=== PATIENT | male | born 1970 | race Hispanic/Latino ===

== ENCOUNTER 2022-07-04 08:53 | Inpatient (IN) | payer OTHER ==
[~2022-07-04] VITALS: Ht 162.6 cm; Wt 90.7 kg
[2022-07-04 09:28] LABS: BASOPHILS % (AUTO) 0.4 % (0.0-5.0); EOSINOPHILS % (AUTO) 1.5 % (0.0-8.0); HEMATOCRIT 35.6 % (42-54); LYMPHOCYTES % (AUTO) 14.7 % (21.0-51.0); MEAN CORPUSCULAR HEMOGLOBIN 27.4 pg (27.0-33.0); MEAN CORPUSCULAR VOLUME 80.7 fL (79-99); MONOCYTES % (AUTO) 6.3 % (3.0-13.0); NEUTROPHILS % (AUTO) 76.6 % (40.0-77.0); PLATELET COUNT (AUTO) 487 K/uL (130-400); RED BLOOD CELL COUNT(AUTO) 4.41 MIL/uL (4.50-6.20); RED CELL DISTRIBUTION WIDTH 11.5 % (11.0-15.5); WHITE BLOOD COUNT (AUTO) 15.7 K/uL (4.8-10.8)
[2022-07-04 10:03] LABS: ALBUMIN 2.6 g/dL (3.5-5.0); CREATININE 0.8 mg/dL (0.5-1.5); POTASSIUM 3.3 mmol/L (3.5-5.1); TOTAL PROTEIN, SERUM 7.7 g/dL (6.0-8.3)
[2022-07-04] MEDS ORDERED: ZOSYN 3.375GM +NS 50ML IV ONE (11:00)
[2022-07-04] MEDS ORDERED: INSULIN HUMULIN R 100 UNIT/ML 3ML SQ ONE (11:00)
[2022-07-04] MEDS ORDERED: HYDROCODONE/ACETAMINOPHEN 5/325 MG TAB PO PRN (11:30)
[2022-07-04] MEDS ORDERED: ONDANSETRON 4MG INJ IV PRN (11:30)
[2022-07-04] MEDS ORDERED: ACETAMINOPHEN 325 MG TAB PO PRN (11:30)
[2022-07-04] MEDS ORDERED: VANCOMYCIN PROTOCOL PER PHARMACY IV PRN (11:30)
[2022-07-04] MEDS: CEFEPIME HCL 2 GM VIAL IVP SCH ×2 (11:56→19:22)
[2022-07-04] MEDS ORDERED: TETANUS/DIPHTHERIA TOXOID [ADULT] 0.5 ML VIAL IM ONE (12:00)
[2022-07-04] MEDS ORDERED: LIDOCAINE HCL-MPF 1% 2ML VIAL IV PRN (12:00)
[2022-07-04] MEDS ORDERED: POTASSIUM CHLORIDE 20MEQ/100ML 100 ML IV PRN (12:00)
[2022-07-04] MEDS ORDERED: POTASSIUM CHLORIDE 10% ELIXIR 20 MEQ/15 ML UDCUP PO PRN (12:00)
[2022-07-04 12:05] LABS: % IRON SATURATION 12.6 % (30-44)
[2022-07-04] MEDS ORDERED: METF-890 PO (12:05)
[2022-07-04] MEDS ORDERED: AMOX1TAB16 PO (12:05)
[2022-07-04] MEDS: KCL 20 MEQ ERTAB PO PRN ×2 (12:06→13:31)
[2022-07-04 12:08] LABS: HEMOGLOBIN A1C 11.3 % (4.0-6.0)
[2022-07-04 12:18] LABS: INR 0.96 (0.85-1.15); PROTHROMBIN TIME 10.5 SEC (9.6-11.6)
[2022-07-04] MEDS ORDERED: METOPROLOL TARTRATE 1 MG/ML 5ML VIAL IV PRN (12:30)
[2022-07-04] MEDS: VANCOMYCIN 1.25 GM/250 ML BAG 250 ML IV SCH ×2 (13:31→23:59)
[2022-07-04 16:00] VITALS: BP 143/68
[2022-07-04] MEDS: INSULIN HUMULIN R 100 UNIT/ML 3ML SQ SCH (19:02)
[2022-07-04] MEDS: FAMOTIDINE 20MG TAB PO SCH (19:21)
[2022-07-04] MEDS: ACETAMINOPHEN 325 MG TAB PO PRN (19:22)
[2022-07-04 20:02] VITALS: BP 157/75
[2022-07-04 23:20] VITALS: BP 140/79
[2022-07-05] MEDS: CEFEPIME HCL 2 GM VIAL IVP SCH ×3 (02:39→20:02)
[2022-07-05 03:38] VITALS: BP 143/79
[2022-07-05 05:18] LABS: HEMATOCRIT 31.8 % (42-54); MEAN CORPUSCULAR HEMOGLOBIN 27.9 pg (27.0-33.0); MEAN CORPUSCULAR HGB CONC 34.3 g/dL (32.0-36.0); MEAN CORPUSCULAR VOLUME 81.3 fL (79-99); RED BLOOD CELL COUNT(AUTO) 3.91 MIL/uL (4.50-6.20); RED CELL DISTRIBUTION WIDTH 11.7 % (11.0-15.5); WHITE BLOOD COUNT (AUTO) 13.3 K/uL (4.8-10.8)
[2022-07-05] MEDS: INSULIN HUMULIN R 100 UNIT/ML 3ML SQ SCH ×6 (05:31→21:30)
[2022-07-05 05:40] LABS: CREATININE 0.7 mg/dL (0.5-1.5); POTASSIUM 3.2 mmol/L (3.5-5.1)
[2022-07-05 08:00] VITALS: BP 143/78
[2022-07-05] MEDS: LISINOPRIL 10 MG TABLET PO SCH (08:00)
[2022-07-05] MEDS: FAMOTIDINE 20MG TAB PO SCH ×2 (08:00→20:02)
[2022-07-05 12:00] VITALS: BP 140/67
[2022-07-05] MEDS ORDERED: MAGNESIUM 2GM PREMIX 50ML 50 ML IV PRN (12:00)
[2022-07-05] MEDS: VANCOMYCIN 1.25 GM/250 ML BAG 250 ML IV SCH (12:31)
[2022-07-05 16:00] VITALS: BP 100/62
[2022-07-05 18:14] LABS: APPEARANCE,URINE CLEAR (CLEAR); BILIRUBIN,URINE NEGATIVE (NEGATIVE); COLOR,URINE YELLOW (YELLOW); GLUCOSE, URINE (UA) >=1000 mg/dL (NEGATIVE); KETONES,URINE NEGATIVE (NEGATIVE); LEUKOCYTE ESTERASE ,URINE NEGATIVE Leu/uL (NEGATIVE); NITRATE,URINE NEGATIVE (NEGATIVE); OCCULT BLOOD,URINE NEGATIVE (NEGATIVE); PROTEIN,URINE 50 mg/dL (NEGATIVE)
[2022-07-05 18:20] LABS: BACTERIA,URINE RARE /HPF (None Seen); MUCUS,URINE RARE LPF (None Seen); SQUAMOUS EPITHELIAL CELL,UR RARE /HPF (0-2)
[2022-07-05 19:31] VITALS: BP 141/62
[2022-07-05] MEDS: HYDROCODONE/ACETAMINOPHEN 5/325 MG TAB PO PRN (20:03)
[2022-07-05 23:21] VITALS: BP 132/63
[2022-07-06] MEDS: VANCOMYCIN 1.25 GM/250 ML BAG 250 ML IV SCH ×2 (00:26→12:00)
[2022-07-06 03:46] VITALS: BP 144/66
[2022-07-06] MEDS: CEFEPIME HCL 2 GM VIAL IVP SCH ×3 (03:52→20:01)
[2022-07-06 05:12] LABS: HEMATOCRIT 29.6 % (42-54); MEAN CORPUSCULAR HEMOGLOBIN 27.7 pg (27.0-33.0); MEAN CORPUSCULAR HGB CONC 34.1 g/dL (32.0-36.0); MEAN CORPUSCULAR VOLUME 81.1 fL (79-99); RED BLOOD CELL COUNT(AUTO) 3.65 MIL/uL (4.50-6.20); RED CELL DISTRIBUTION WIDTH 11.5 % (11.0-15.5); WHITE BLOOD COUNT (AUTO) 14.1 K/uL (4.8-10.8)
[2022-07-06 05:24] LABS: CREATININE 0.7 mg/dL (0.5-1.5)
[2022-07-06 05:33] LABS: POTASSIUM 2.9 mmol/L (3.5-5.1)
[2022-07-06] MEDS: KCL 20 MEQ ERTAB PO PRN ×4 (05:37→11:59)
[2022-07-06] MEDS: INSULIN HUMULIN R 100 UNIT/ML 3ML SQ SCH ×7 (06:23→22:06)
[2022-07-06 07:20] VITALS: BP 125/53
[2022-07-06] MEDS: LISINOPRIL 10 MG TABLET PO SCH (08:47)
[2022-07-06] MEDS: FAMOTIDINE 20MG TAB PO SCH ×2 (08:54→20:01)
[2022-07-06] MEDS: HYDROCODONE/ACETAMINOPHEN 5/325 MG TAB PO PRN ×2 (08:58→20:05)
[2022-07-06] MEDS ORDERED: ASPIRIN 81 MG EC TAB PO ONE (10:00)
[2022-07-06 11:20] VITALS: BP 117/62
[2022-07-06] MEDS: ASPIRIN 81 MG EC TAB PO SCH (11:46)
[2022-07-06] MEDS ORDERED: GADOTERATE MEGLUMINE 10 MMOL/20 ML VIAL IV ONE (14:43)
[2022-07-06 15:10] VITALS: BP 123/66
[2022-07-06] MEDS: VANCOMYCIN 1.5 GM/250 ML BAG 250 ML IV SCH (15:35)
[2022-07-06 16:15] LABS: MAGNESIUM 1.8 mg/dL (1.80-2.40); POTASSIUM 4.1 mmol/L (3.5-5.1)
[2022-07-06 19:34] VITALS: BP 138/65
[2022-07-06] MEDS: ATORVASTATIN 40 MG TABLET PO SCH (20:01)
[2022-07-06 23:59] VITALS: BP 129/70
[2022-07-07] VITALS (22 sets, daily range): BP systolic 114–151; BP diastolic 53–75
[2022-07-07] MEDS: VANCOMYCIN 1.5 GM/250 ML BAG 250 ML IV SCH ×2 (03:05→15:44)
[2022-07-07] MEDS: CEFEPIME HCL 2 GM VIAL IVP SCH ×3 (03:05→19:54)
[2022-07-07 04:43] LABS: CREATININE 0.7 mg/dL (0.5-1.5); POTASSIUM 3.6 mmol/L (3.5-5.1)
[2022-07-07 04:51] LABS: HEMATOCRIT 30.1 % (42-54); MEAN CORPUSCULAR HEMOGLOBIN 27.3 pg (27.0-33.0); MEAN CORPUSCULAR HGB CONC 33.6 g/dL (32.0-36.0); MEAN CORPUSCULAR VOLUME 81.4 fL (79-99); RED BLOOD CELL COUNT(AUTO) 3.7 MIL/uL (4.50-6.20); RED CELL DISTRIBUTION WIDTH 11.8 % (11.0-15.5); WHITE BLOOD COUNT (AUTO) 12.1 K/uL (4.8-10.8)
[2022-07-07] MEDS: INSULIN HUMULIN R 100 UNIT/ML 3ML SQ SCH ×7 (05:46→19:55)
[2022-07-07] MEDS ORDERED: LIDOCAINE HCL 1% 10 ML VIAL ONE (06:55)
[2022-07-07] MEDS ORDERED: BUPIVACAINE/PF 0.5% 10ML VIAL ONE (06:55)
[2022-07-07] MEDS ORDERED: MIDAZOLAM HCL 1 MG/ML 2ML VIAL ONE (07:02)
[2022-07-07] MEDS ORDERED: PROPOFOL 10 MG/ML 20ML VIAL IV ONE (07:03)
[2022-07-07] MEDS ORDERED: FENTANYL CITRATE PF 50 MCG/1 ML 2ML VIAL ONE ×2 (07:03)
[2022-07-07] MEDS ORDERED: PROPOFOL 1000 MG/100 ML 100 ML IV ONE (07:26)
[2022-07-07] MEDS ORDERED: ONDANSETRON 4MG INJ ONE (07:35)
[2022-07-07] MEDS ORDERED: GLYCOPYRROLATE 1 MG/5 ML SYRINGE ONE (08:03)
[2022-07-07] MEDS ORDERED: INSULIN GLARGINE 100 UNITS/ML 10 ML VIAL SQ SCH (09:30)
[2022-07-07] MEDS: LISINOPRIL 10 MG TABLET PO SCH (10:00)
[2022-07-07] MEDS: FAMOTIDINE 20MG TAB PO SCH ×2 (10:00→19:55)
[2022-07-07] MEDS: ASPIRIN 81 MG EC TAB PO SCH (10:00)
[2022-07-07] MEDS: HYDROCODONE/ACETAMINOPHEN 5/325 MG TAB PO PRN ×3 (10:05→21:43)
[2022-07-07] MEDS: ATORVASTATIN 40 MG TABLET PO SCH (19:55)
[2022-07-07] MEDS: ACETAMINOPHEN 325 MG TAB PO PRN (19:56)
[2022-07-07] MEDS: INSULIN GLARGINE 100 UNITS/ML 10 ML VIAL SQ SCH (20:03)
[2022-07-08] MEDS: VANCOMYCIN 1.5 GM/250 ML BAG 250 ML IV SCH (02:18)
[2022-07-08] MEDS: CEFEPIME HCL 2 GM VIAL IVP SCH (02:18)
[2022-07-08 03:51] VITALS: BP 126/66
[2022-07-08 04:41] LABS: HEMATOCRIT 27.9 % (42-54); MEAN CORPUSCULAR HEMOGLOBIN 27.4 pg (27.0-33.0); MEAN CORPUSCULAR HGB CONC 33.3 g/dL (32.0-36.0); MEAN CORPUSCULAR VOLUME 82.3 fL (79-99); RED BLOOD CELL COUNT(AUTO) 3.39 MIL/uL (4.50-6.20); RED CELL DISTRIBUTION WIDTH 11.6 % (11.0-15.5); WHITE BLOOD COUNT (AUTO) 12.3 K/uL (4.8-10.8)
[2022-07-08 04:51] LABS: CREATININE 0.7 mg/dL (0.5-1.5); POTASSIUM 3.5 mmol/L (3.5-5.1)
[2022-07-08] MEDS: KCL 20 MEQ ERTAB PO PRN (05:27)
[2022-07-08] MEDS: INSULIN HUMULIN R 100 UNIT/ML 3ML SQ SCH ×7 (06:21→20:52)
[2022-07-08 07:39] VITALS: BP 134/56
[2022-07-08] MEDS: FAMOTIDINE 20MG TAB PO SCH ×2 (09:09→20:44)
[2022-07-08] MEDS: LISINOPRIL 10 MG TABLET PO SCH (09:09)
[2022-07-08] MEDS: HYDROCODONE/ACETAMINOPHEN 5/325 MG TAB PO PRN ×3 (09:10→22:43)
[2022-07-08] MEDS: ASPIRIN 81 MG EC TAB PO SCH (09:10)
[2022-07-08] MEDS: INSULIN GLARGINE 100 UNITS/ML 10 ML VIAL SQ SCH ×2 (09:12→20:52)
[2022-07-08 11:43] VITALS: BP 106/28
[2022-07-08] MEDS: CEFAZOLIN SODIUM 1 GM VIAL IVP SCH ×2 (13:24→20:44)
[2022-07-08 16:20] VITALS: BP 147/67
[2022-07-08 20:19] VITALS: BP 121/73
[2022-07-08] MEDS: ATORVASTATIN 40 MG TABLET PO SCH (20:44)
[2022-07-09 00:29] VITALS: BP 138/77
[2022-07-09 03:45] VITALS: BP 116/63
[2022-07-09] MEDS: CEFAZOLIN SODIUM 1 GM VIAL IVP SCH ×3 (04:01→18:50)
[2022-07-09] MEDS: INSULIN HUMULIN R 100 UNIT/ML 3ML SQ SCH ×7 (06:53→21:00)
[2022-07-09 08:27] VITALS: BP 157/76
[2022-07-09] MEDS: INSULIN GLARGINE 100 UNITS/ML 10 ML VIAL SQ SCH ×2 (09:00→23:35)
[2022-07-09] MEDS: ASPIRIN 81 MG EC TAB PO SCH (09:00)
[2022-07-09] MEDS: FAMOTIDINE 20MG TAB PO SCH ×2 (09:00→20:37)
[2022-07-09] MEDS: LISINOPRIL 10 MG TABLET PO SCH (09:00)
[2022-07-09] MEDS ORDERED: HEPARIN 10,000 UNIT/10ML (1,000 UNIT/ML) VIAL ONE (11:06)
[2022-07-09] MEDS ORDERED: FENTANYL CITRATE PF 50 MCG/1 ML 2ML VIAL ONE (11:18)
[2022-07-09] MEDS ORDERED: MIDAZOLAM HCL 1 MG/ML 2ML VIAL ONE (11:18)
[2022-07-09] MEDS ORDERED: ASPIRIN 325MG EC TAB PO ONE (11:36)
[2022-07-09] MEDS ORDERED: CLOPIDOGREL 300MG TAB ONE (11:36)
[2022-07-09] MEDS ORDERED: 0.9%NACL 1000ML 1,000 ML IV SCH (12:00)
[2022-07-09 13:01] VITALS: BP 149/70
[2022-07-09 15:30] VITALS: BP 146/72
[2022-07-09] MEDS: ATORVASTATIN 40 MG TABLET PO SCH (20:38)
[2022-07-09] MEDS: ACETAMINOPHEN 325 MG TAB PO PRN (20:42)
[2022-07-09 20:50] VITALS: BP 151/72
[2022-07-09] MEDS ORDERED: HYDROMORPHONE 0.5 MG SYG (0.5MG/0.5ML) IVP ONE (23:00)
[2022-07-10 00:16] VITALS: BP 146/68
[2022-07-10] MEDS: CEFAZOLIN SODIUM 1 GM VIAL IVP SCH ×2 (03:54→12:04)
[2022-07-10] MEDS: ACETAMINOPHEN 325 MG TAB PO PRN (04:04)
[2022-07-10 04:43] VITALS: BP 148/93
[2022-07-10 05:12] LABS: BASOPHILS % (AUTO) 0.6 % (0.0-5.0); EOSINOPHILS % (AUTO) 2.9 % (0.0-8.0); HEMATOCRIT 29.4 % (42-54); LYMPHOCYTES % (AUTO) 18.5 % (21.0-51.0); MEAN CORPUSCULAR HEMOGLOBIN 26.9 pg (27.0-33.0); MEAN CORPUSCULAR HGB CONC 33.3 g/dL (32.0-36.0); MEAN CORPUSCULAR VOLUME 80.8 fL (79-99); MONOCYTES % (AUTO) 7.3 % (3.0-13.0); NEUTROPHILS % (AUTO) 70.3 % (40.0-77.0); PLATELET COUNT (AUTO) 434 K/uL (130-400); RED BLOOD CELL COUNT(AUTO) 3.64 MIL/uL (4.50-6.20); RED CELL DISTRIBUTION WIDTH 11.5 % (11.0-15.5); WHITE BLOOD COUNT (AUTO) 8.5 K/uL (4.8-10.8)
[2022-07-10 05:29] LABS: CREATININE 0.7 mg/dL (0.5-1.5); POTASSIUM 3.3 mmol/L (3.5-5.1); TOTAL PROTEIN, SERUM 6.8 g/dL (6.0-8.3)
[2022-07-10] MEDS: INSULIN HUMULIN R 100 UNIT/ML 3ML SQ SCH ×6 (06:22→17:45)
[2022-07-10] MEDS: KCL 20 MEQ ERTAB PO PRN (06:35)
[2022-07-10 08:00] VITALS: BP 155/85
[2022-07-10] MEDS ORDERED: CLOPIDOGREL 75MG TAB PO SCH (09:00)
[2022-07-10] MEDS: ASPIRIN 81 MG EC TAB PO SCH (09:11)
[2022-07-10] MEDS: FAMOTIDINE 20MG TAB PO SCH (09:11)
[2022-07-10] MEDS: LISINOPRIL 10 MG TABLET PO SCH (09:12)
[2022-07-10] MEDS: INSULIN GLARGINE 100 UNITS/ML 10 ML VIAL SQ SCH (09:25)
[2022-07-10] MEDS ORDERED: MORPHINE 2 MG SYG IVP PRN (11:00)
[2022-07-10] MEDS ORDERED: KETOROLAC 15MG/ML VIAL (15MG/ML) IV PRN (11:00)
[2022-07-10 12:00] VITALS: BP 150/63
[2022-07-10] MEDS ORDERED: LISI10TA24 PO (12:31)
[2022-07-10] MEDS ORDERED: FAMO20TA8 PO (12:31)
[2022-07-10] MEDS ORDERED: ATOR40TA69 PO (12:31)
[2022-07-10] MEDS ORDERED: CLOP75TA14 PO (12:31)
[2022-07-10] MEDS ORDERED: AEC81 PO (12:31)
[2022-07-10 16:00] VITALS: BP 129/63
== END 2022-07-10 18:30 | disposition home or self-care (01) | DRG 271 ==
LOC: EDH 08:53 → EDHIP 08:54 → UNDOADMIN 11:30 → 3DH 16:22 → EDHIP 07-10 08:57 → 3DH 07-10 08:57
PROVIDERS: ADMIT Hospitalist; ATTEND Hospitalist
PROC: 0Y9N0ZZ Drainage of Left Foot, Open Approach (ICD-10-PCS; principal; 2022-07-05)
PROC: 0Y6N0ZD Detachment at Left Foot, Partial 4th Ray, Open Approach (ICD-10-PCS; 2022-07-07)
PROC: 0Y6N0ZF Detachment at Left Foot, Partial 5th Ray, Open Approach (ICD-10-PCS; 2022-07-07)
PROC: 0LQW0ZZ Repair Left Foot Tendon, Open Approach (ICD-10-PCS; 2022-07-07)
PROC: 04CQ3ZZ Extirpation of Matter from Left Anterior Tibial Artery, Percutaneous Approach (ICD-10-PCS; 2022-07-09)
PROC: 047N3D1 Dilation of Left Popliteal Artery with Intraluminal Device, using Drug-Coated Balloon, Percutaneous Approach (ICD-10-PCS; 2022-07-09)
PROC: 04FN3ZZ Fragmentation of Left Popliteal Artery, Percutaneous Approach (ICD-10-PCS; 2022-07-09)
PROC: B41D1ZZ Fluoroscopy of Aorta and Bilateral Lower Extremity Arteries using Low Osmolar Contrast (ICD-10-PCS; 2022-07-09)
DX: E11.52 Type 2 diabetes mellitus with diabetic peripheral angiopathy with gangrene (principal); L03.116 Cellulitis of left lower limb; M86.8X7 Other osteomyelitis, ankle and foot; E11.621 Type 2 diabetes mellitus with foot ulcer; Z20.822 Contact with and (suspected) exposure to COVID-19; E11.65 Type 2 diabetes mellitus with hyperglycemia; L97.529 Non-pressure chronic ulcer of other part of left foot with unspecified severity; D72.829 Elevated white blood cell count, unspecified; E87.6 Hypokalemia; B95.61 Methicillin susceptible Staphylococcus aureus infection as the cause of diseases classified elsewhere; I10 Essential (primary) hypertension; E83.42 Hypomagnesemia; E66.9 Obesity, unspecified; E11.69 Type 2 diabetes mellitus with other specified complication; E11.42 Type 2 diabetes mellitus with diabetic polyneuropathy; Z91.19 Patient's noncompliance with other medical treatment and regimen; Z87.891 Personal history of nicotine dependence; Z79.82 Long term (current) use of aspirin; Z79.02 Long term (current) use of antithrombotics/antiplatelets; Z68.34 Body mass index [BMI] 34.0-34.9, adult
CPT/HCPCS: 36415; 73630; 73718; 73720; 75716; 80048; 80053; 80061; 80202; 81001; 82948; 83036; 83540; 83550; 83735; 84132; 84145; 85025; 85027; 85610; 85651; 87040; 87070; 87076; 87077; 87088; 87186; 87205; 87635; 90714; 93005; 93925; 99156; 99157; A6266; C1724; C1760; C1769; C1893; C1894; C9764; C9774; G0378; J0690; J0692; J1644; J1815; J2250; J2405; J2543; J2704; J3010; J3475; J3480; J3490

== ENCOUNTER 2025-06-04 12:24 | Emergency (ER) | payer SELFPAY ==
[~2025-06-04] VITALS: Ht 170.2 cm; Wt 79.9 kg
[~2025-06-04 12:24] MED LIST: AEC81 PO; ATOR40TA69 PO; CLOP-31 PO; FAMO20TA8 PO; LISI10TA24 PO; METF-1150 PO
--- NOTE | 2025-06-04 12:32 | ERN ---
ED Note History of Present Illness Stated Complaint: NUMBNESS TO RIGHT SIDE Chief Complaint: Numbness Time Seen by MD: 12:26 Dictation: PATIENT IS A 54-YEAR-OLD MALE HERE WITH HIS DAUGHTER WITH COMPLAINTS OF HAVING NUMBNESS AND TINGLING TO THE RIGHT SIDE OF HIS BODY ONSET WAS ON SATURDAY. STATES THE ONSET CAME IN HIS CONTINUED SINCE THE OCCURRENCE. STATES HE HAS FELT LIKE HE IS HAVING SOME SLURRING OF SPEECH. PATIENT NOTED TO HAVE DECREASED SENSATION TO HIS LOWER EXTREMITIES ON EXAM BILATERALLY. CRANIAL NERVES GROSSLY INTACT SPEECH IS CLEAR. PATIENT STATES HE HAS A DIABETIC, DOES NOT TAKE ANY MEDICATIONS OR TRIED TO CONTROL HIS DIABETES. NO PRIMARY CARE DOCTOR. Allergies: Coded Allergies: No Known Allergies (Unverified Allergy, Unknown, 07/04/22) Home Meds Active Scripts Lisinopril (Lisinopril) 10 Mg Tablet, 10 MG PO DAILY, #30 TAB 0 Refills Prov:ELSIE GRIMALDO [facility] 07/10/22 Famotidine (Famotidine) 20 Mg Tablet, 20 MG PO BID, #60 TAB 0 Refills Prov:ELSIE GRIMALDO [facility] 07/10/22 Clopidogrel Bisulfate (Plavix) 75 Mg Tablet, 75 MG PO DAILY, #30 TAB 0 Refills Prov:ELSIE GRIMALDO [facility] 07/10/22 Atorvastatin Calcium (LIPITOR) 40 Mg Tablet, 40 MG PO HS, #30 TAB 0 Refills Prov:ELSIE GRIMALDO [facility] 07/10/22 Aspirin (ASPIRIN 81 MG ECTAB) 81 Mg Ectab, 81 MG PO DAILY, #30 TAB.EC 0 Refills Prov:ELSIE GRIMALDO [facility] 07/10/22 Reported Medications Metformin HCl (Metformin HCl ER) 500 Mg [id number], 500 MG PO DAILY 07/04/22 Past Medical History Past Medical History: Diabetes-Type II Surgical History: Other Surgical History Other: RT LEG FX Social History: Other RN Note Reviewed/Agreed w/PFSH: Yes Review of System Dictation CONSTITUTIONAL: NEGATIVE EXCEPT FOR HPI HEAD/FACE: NEGATIVE EXCEPT FOR HPI EENT: NEGATIVE EXCEPT FOR HPI RESPIRATORY: NEGATIVE EXCEPT FOR HPI GASTROINTESTINAL/ABDOMINAL: NEGATIVE EXCEPT FOR HPI GENITOURINARY: NEGATIVE EXCEPT FOR HPI MUSCULOSKELETAL: NEGATIVE EXCEPT FOR HPI INTEGUMENTARY: NEGATIVE EXCEPT FOR HPI NEUROLOGICAL/PSYCH: NEGATIVE EXCEPT FOR HPI NUMBNESS AND TINGLING TO RIGHT UPPER AND LOWER EXTREMITIES HEMATOLOGIC/LYMPHATIC: NEGATIVE EXCEPT FOR HPI ALL SYSTEMS NEGATIVE, EXCEPT NOTED ABOVE. 13 POINT REVIEW OF SYSTEMS ASSESSED AND ALL NEGATIVE EXCEPT FOR ABOVE. Initial Vital Sign VS Vital Signs Date Time Temp Pulse Resp B/P (MAP) Pulse Ox O2 Delivery O2 Flow Rate FiO2 06/04/25 12:26 105 19 188/97 99 Room Air 0 06/04/25 14:02 21 Physical Exam Dictation VITAL SIGNS REVIEWED GENERAL APPEARANCE: ALERT, ORIENTED X 3, NO ACUTE DISTRESS, WELL DEVELOPED, NOURISHED. DENIES PAIN HEAD AND FACE: NON-TRAUMATIC. EYES: PERRL, PINK CONJUNCTIVAS, EYELID NO TRAUMA, ANTERIOR CHAMBER WITH ARCUS SENILIS. EARS: PINNAS INTACT AND NO SIGNS OF TRAUMA OR ERYTHEMA EAR CANALS CLEAR AND NO DISCHARGE TM NO ERYTHEMA NOSE: NO DISCHARGE, NO BLEEDING. OROPHARYNX: MOUTH NORMAL, TONGUE PINK, PHARYNX CLEAR,NO ERYTHEMA, TONSILS NO EXUDATES, NO ABSCESSES NOTED, MUCOUS MEM BRANE MOIST NECK: SUPPLE, NON-TENDER, NO THYROMEGALY, NO MASSES, NO JVD, NO BRUITS BREAST:DEFERRED CHEST:NO TENDERNESS, NO CREPITUS, NO PARADOXICAL MOVEMENT, NO RETRACTIONS LUNGS:CLEAR, WELL-VENTILATED, SYMMETRIC, NO RALES, NO WHEEZING, NO RHONCHI, NO STRIDOR, GOOD BREATH SOUNDS BILATERALLY HEART: REGULAR RATE, REGULAR RHYTHM, NO MURMUR, NO GALLOPS VASCULAR: NO PERIPHERAL EDEMA, ABDOMEN: SOFT, POSITIVE BOWEL SOUNDS, NONDISTENDED, NO GUARDING, NONTENDER, NO REBOUND, NO MASSES NO HEPATOMEGALY, NO SPLENOMEGALY, NO BIRD'S SIGN, NO HERNIAS. RECTAL: DEFERRED GENITAL: DEFERRED NEUROLOGICAL: NORMAL SPEECH, MOTOR FUNCTION INTACT, DECREASED SENSATION TO BILATERAL LOWER EXTREMITIES MOVES ALL EXTREMITIES 5/5 CRANIAL NERVES GROSSLY INTACT MUSCULOSKELETAL: NECK NONTENDER, FULL RANGE OF MOTION, BACK NONTENDER, FULL RANGE OF MOTION, EXTREMITIES: NONTENDER, FULL RANGE OF MOTION SKIN: COLOR PINK, DRY, NO TURGOR, NO RASH, NO LACERATIONS, NO ABRASIONS, NO CONTUSIONS. LYMPHATIC: DEFERRED Results (Laboratory/Radiology) Laboratory/Radiology Laboratory Tests Test 06/04/25 12:42 06/04/25 13:45 06/04/25 14:26 06/04/25 15:42 White Blood Count 8.4 K/uL (4.8-10.8) Red Blood Count 5.29 MIL/uL (4.50-6.20) Hemoglobin 14.9 g/dL (14.0-18.0) Hematocrit 42.7 % (42-54) Mean Corpuscular Volume 80.7 fL (79-99) Mean Corpuscular Hemoglobin 28.2 pg (27.0-33.0) Mean Corpuscular Hemoglobin Concent 34.9 g/dL (32.0-36.0) Red Cell Distribution Width 11.9 % (11.0-15.5) Platelet Count 252 K/uL (130-400) Mean Platelet Volume 11.9 fL (7.5-10.5) H Immature Granulocyte % (Auto) 0.2 % (0-1) Neutrophils (%) (Auto) 67.6 % (40.0-77.0) Lymphocytes (%) (Auto) 25.2 % (21.0-51.0) Monocytes (%) (Auto) 4.9 % (3.0-13.0) Eosinophils (%) (Auto) 1.4 % (0.0-8.0) Basophils (%) (Auto) 0.7 % (0.0-5.0) Neutrophils # (Auto) 5.7 K/uL (1.8-7.7) Lymphocytes # (Auto) 2.1 K/uL (1.0-4.8) Monocytes # (Auto) 0.4 K/uL (0.1-1.0) Eosinophils # (Auto) 0.12 K/uL (0.00-0.70) Basophils # (Auto) 0.06 K/uL (0.00-0.20) Absolute Immature Granulocyte (auto 0.02 K/uL (0-1) Nucleated Red Blood Cells 0.0 % (0.0-0.19) Sodium Level 139 mmol/L (136-145) Potassium Level 4.3 mmol/L (3.5-5.1) Chloride Level 98 mmol/L (101-111) L Carbon Dioxide Level 32 mmol/L (21-32) Blood Urea Nitrogen 20 mg/dL (7-18) H Creatinine 0.9 mg/dL (0.5-1.3) Glomerular Filtration Rate Calc 101 mL/min (>90) Random Glucose 447 mg/dL (70-105) *H Total Calcium 9.5 mg/dL (8.5-10.1) Troponin I High Sensitivity 22 ng/L (4-75) Whole Blood Glucose 401 MG/DL (70-110) *H 368 MG/DL (70-110) H 222 MG/DL (70-110) H Bedside Glucose Comment Notified Nurse REASON: NUMBNESS AND TINGLING TO RIGHT UPPER AND LOWER EXTREMITIES SINCE SATURDAY ORDERING PHYSICIAN: QUAN MORALES VIOLIN MAKER HAND PROCEDURE: HEAD WO - CT HEAD/BRAIN W/O CONTRAST CT OF THE BRAIN WITHOUT CONTRAST CLINICAL INDICATION: Numbness and tingling TECHNIQUE: Multiple contiguous axial CT images were obtained through the brain without the administration of intravenous contrast. Coronal and sagittal reconstructions were also obtained. COMPARISON: None available FINDINGS: The ventricular system and cortical sulci demonstrate a normal size and configuration for the patients age. There are no intra- or extra-axial collections, mass effect, or midline shift. The basal cisterns are patent. The crain-white matter differentiation is preserved. The midline structures and cervicomedullary junction are unremarkable. There is no evidence of acute intracranial hemorrhage or areas of acute infarction. Vascular calcification is present. The calvarium is unremarkable in appearance. No suspicious lytic or sclerotic osseous lesions are seen. The visualized portions of the sinuses are well aerated. The mastoid air cells are well pneumatized and well aerated. The visualized orbital structures are unremarkable in appearance. IMPRESSION: No CT evidence of an acute intracranial process. /[place] Labs Reviewed?: Yes EKG Comment: [facility] Test Date: 2025-06-04 Test Time: 12:36:50 Pat Name: MIRIAM COTTO Department: EDH Room: Gender: Count Room Clerk: 08 : 1970 Requested By: QUAN MORALES Order Number: [id number] Reading MD: Measurements Intervals [place] Rate: 105 P: 34 MO: 178 QRS: 114 QRSD: 109 T: 6 QT: 349 QTc: 461 Interpretive Statements Sinus tachycardia Probable left atrial enlargement Right axis deviation Please click the below link to view image of tracing. ED Course ED Course Orders Procedure Category Date Status Time Ct Head/Brain W/O CT 06/04/25 Resulted Contrast 12:29 Cbc With Differential LAB 06/04/25 Complete 12:29 Troponin I High LAB 06/04/25 Complete Sensitivity 12:29 12 Lead Ekg Tracing- EKG 06/04/25 Complete Technical 12:29 Basic Metabolic Panel LAB 06/04/25 Complete 12:29 Insulin Regular, PHA 06/04/25 Complete Human 3ml (Humulin R 13:30 0.9%Nacl 1000ml (Ns PHA 06/04/25 In Process 1000ml) 13:30 Bedside Glucose CPOE 06/04/25 Transmitted Fingerstick 14:09 Insulin Regular, PHA 06/04/25 Complete Human 3ml (Humulin R 15:30 Current Medications Medications (Trade) Dose Ordered Sig/Tr Route PRN Reason Start Time Stop Time Status Last Admin Dose Admin Insulin Human Regular (humuLIN R 100 UNIT/ML 3ML) 10 unit ONCE ONCE IV 06/04/25 15:30 06/04/25 15:31 DC Insulin Human Regular (humuLIN R 100 UNIT/ML 3ML) 12 unit ONCE ONCE IV 06/04/25 13:30 06/04/25 13:31 DC 06/04/25 13:59 Sodium Chloride 2,397 ml @ 799 mls/hr ONCE ONCE IV 06/04/25 13:30 06/04/25 16:29 06/04/25 13:40 Vital Signs Date Time Temp Pulse Resp B/P (MAP) Pulse Ox O2 Delivery O2 Flow Rate FiO2 06/04/25 14:02 95 16 129/78 99 Room Air* 0 21 06/04/25 12:26 105 19 188/97 99 Room Air 0 1310/SERUM GLUCOSE 447. BICARB IS NORMAL. WE WILL GIVE 12 UNITS HUMULIN REGULAR IV PUSH AND 30 PER KILOS FLUIDS. 1330/SPOKE WITH PATIENT AND DAUGHTER AT LENGTH AT BEDSIDE. THEY ARE AWARE THAT CAT SCAN IS NEGATIVE THAT THERE HAS BEEN NO ACUTE NEUROLOGIC EVENT. PATIENT AND HIS DAUGHTER WERE STRONGLY WARNED TO CONTROL HIS DIABETES OR RISK STROKE, HEART ATTACK, KIDNEY DISEASE, UNCONTROLLED HYPERTENSION PER HER FOR VASCULAR DISEASE BLINDNESS ETC. PATIENT STATES HE USED TO TAKE METFORMIN AND WE WILL TAKE IT IF IT HAS PROVIDED THROUGH A PRESCRIPTION. HIS DAUGHTER STATES SHE IS TRYING TO GET HIM ON MEDICAID. 1555/REPEAT BLOOD SUGAR IS 222. PATIENT NEUROLOGICALLY INTACT AND WAS INFORMED THAT HE NEEDS TO BE COMPLIANT WITH HIS METFORMIN AND FOLLOW A DIABETIC DIET, FOLLOW UP WITH THE DOCTOR IN THE NEXT ONE TWO DAYS AND WE WILL BE GIVEN LIST. HEART Score Response (Comments) Value EKG: Repolarization changes 1 Age: 45-65yrs (+1) 1 Risk Factors: 1-2 risk factors (+1) 1 Initial Troponin: Normal limit (0) 0 Total 3 Medical Decision Making MDM MDM: DIFFERENTIAL DIAGNOSIS: CVA/SUBDURAL HEMATOMA/DIABETIC NEUROPATHY/ELECTROLYTE IMBALANCE/DEHYDRATION/UNCONTROLLED DIABETES RATIONALE: TESTS CONSIDERED AND ORDERED SECONDARY TO SHARED DECISION MAKING INCLUDE: EKG/LABS/ PREVIOUS OUTSIDE RECORDS REVIEWED: OLD ER VISITS. RISK OF COMPLICATION AND/OR MORBIDITY OR MORTALITY OF PATIENT MANAGEMENT: NONE MEDICATIONS-PER MEDICATION RECONCILIATION NEED FOR HOSPITALIZATION: PATIENT DOES NOT MEET CRITERIA FOR HOSPITALIZATION. RAD NO NEED FOR EMERGENCY MAJOR/MINOR SURGERY: NO THERE ARE NO SOCIAL CONCERNS WITH THIS PATIENT. PRESCRIPTION DRUG MANAGEMENT METFORMIN PRESCRIPTIONS WILL INCLUDE SYMPTOMATIC CARE PATIENT'S PRIOR EXTERNAL MEDICAL RECORDS FROM OTHER ER VISITS WERE REVIEWED BY ME INDICATED. PRIOR TESTING AND RESULTS FROM PREVIOUS VISITS WERE REVIEWED. PRIOR TESTS WERE TAKEN INTO ACCOUNT WITH MEDICAL DECISION MAKING AND RESOURCE UTILIZATION, INDEPENDENT HISTORIAN/HISTORIANS WERE USED TO OBTAIN COMPLETE MEDICAL HISTORY. I INDEPENDENTLY INTERPRETED THE TEST THAT WERE PERFORMED, RESULTS WERE REVIEWED BY ME AND CONSIDERED FINDINGS ON RADIOLOGY IF ORDERED. MEDICAL MANAGEMENT AND EXAMINATION INTERPRETATION DISCUSSIONS WERE HAD BY ME WITH OTHER QUALIFIED HEALTHCARE PROFESSIONALS INDICATED FOR THE PATIENT'S CARE. DX & DISP Disposition: Discharge Departure Impression: Primary Impression: Uncontrolled diabetes mellitus Additional Impressions: Diabetic peripheral neuropathy, Hypochloremia, Dehydration, Medically noncompliant Condition: Stable Scripts Metformin HCl (Metformin HCl) 1,000 Mg Tablet 1000 MG PO BID, #60 TAB Prov: QUAN MORALES [employer] HAND 06/04/25 Additional Instructions: FOLLOW-UP WITH PRIMARY CARE PROVIDER IN 1 TO 2 DAYS. TAKE MEDICATIONS DIRECTED HERE IN THE EMERGENCY ROOM. OKAY TO CONTINUE HOME MEDICATIONS UNLESS OTHERWISE DISCUSSED DURING YOUR VISIT IN THE EMERGENCY ROOM TODAY. RETURN TO YOUR NEAREST EMERGENCY ROOM IF SYMPTOMS WORSEN OR IF THERE IS NO IMPROVEMENT. CALL 911 IF YOU NEED IMMEDIATE ASSISTANCE. TAKE TYLENOL OR MOTRIN [id number] NEEDED AND IF NO CONTRAINDICATIONS ARE PRESENT. INCREASE ORAL HYDRATION. A WOUND CULTURE OR URINE CULTURE WAS ORDERED HERE IN THE EMERGENCY ROOM DEPARTMENT PLEASE FOLLOW-UP WITH PRIMARY CARE PROVIDER AND ADVISE THEM TO GET REPEAT PORTS FROM OUR FACILITY. IF YOU HAD ANY KRISTA WRAP/SPLINTS THAT WERE APPLIED HERE, PLEASE DO NOT REMOVE THEM UNTIL YOU SEE YOUR PRIMARY CARE OR SPECIALTY. TAKE METFORMIN DIRECTED TWICE A DAY WITH MEALS. INCREASE YOUR WATER INTAKE. FOLLOW UP WITH THE DOCTOR ON THE LIST PROVIDED YOU IN THE NEXT 2-3 DAYS FOR MANAGEMENT OF YOUR DIABETES. Referrals: SELF,REFERRAL (PCP) Time of Disposition: 16:02 I have reviewed the case, and I agree with, Diagnosis and Plan QUAN MORALES NP Jun 04, 2025 12:32
--- NOTE | 2025-06-04 12:41 | EKG ---
[facility] Test Date: 2025-06-04 Test Time: 12:36:50 Pat Name: MIRIAM COTTO Department: ED Room: Gender: M Mule Rider: [facility] : 1970 Requested By: QUAN MORALES Order Number: [id number] Reading MD: Jack Stout Measurements Intervals [place] Rate: 105 P: 34 DE: 178 QRS: 114 QRSD: 109 T: 6 QT: 349 QTc: 461 Interpretive Statements Sinus tachycardia Probable left atrial enlargement Right axis deviation Compared to ECG 07/04/2022 10:04:44 Right-axis deviation now present Sinus rhythm no longer present Prolonged QT interval no longer present Electronically Signed On 06-04-2025 16:06:50 CDT by Jack Stout Please click the below link to view image of tracing.
[2025-06-04 12:50] LABS: IMMATURE GRANULOCYTE ABSOLUTE 0.02 K/uL (0-1); NUCLEATED RED BLOOD CELLS 0.0 % (0.0-0.19); PLATELET COUNT (AUTO) 252 K/uL (130-400); RED BLOOD CELL COUNT(AUTO) 5.29 MIL/uL (4.50-6.20); RED CELL DISTRIBUTION WIDTH 11.9 % (11.0-15.5); WHITE BLOOD COUNT (AUTO) 8.4 K/uL (4.8-10.8)
[2025-06-04 13:02] LABS: CREATININE 0.9 mg/dL (0.5-1.3); GLOMERULAR FILTR. RATE CALC 101.0 mL/min (>90); SODIUM SERUM 139.0 mmol/L (136-145); UREA NITROGEN, BLOOD 20.0 mg/dL (7-18)
[2025-06-04 13:06] LABS: GLUCOSE,RANDOM 447.0 mg/dL (70-105)
--- NOTE | 2025-06-04 13:11 | HMCIMG ---
CT OF THE BRAIN WITHOUT CONTRAST CLINICAL INDICATION: Numbness and tingling TECHNIQUE: Multiple contiguous axial CT images were obtained through the brain without the administration of intravenous contrast. Coronal and sagittal reconstructions were also obtained. COMPARISON: None available FINDINGS: The ventricular system and cortical sulci demonstrate a normal size and configuration for the patients age. There are no intra- or extra-axial collections, mass effect, or midline shift. The basal cisterns are patent. The crain-white matter differentiation is preserved. The midline structures and cervicomedullary junction are unremarkable. There is no evidence of acute intracranial hemorrhage or areas of acute infarction. Vascular calcification is present. The calvarium is unremarkable in appearance. No suspicious lytic or sclerotic osseous lesions are seen. The visualized portions of the sinuses are well aerated. The mastoid air cells are well pneumatized and well aerated. The visualized orbital structures are unremarkable in appearance. IMPRESSION: No CT evidence of an acute intracranial process. /[place]
[2025-06-04] MEDS: 0.9%NACL 1000ML 2,397 ML IV ONE (13:40)
--- NOTE | 2025-06-04 13:45 | NUR ---
BG 401
--- NOTE | 2025-06-04 14:26 | NUR ---
FINGER STICK BG 368, INSULIN ADMINISTERED CHARTED.
--- NOTE | 2025-06-04 15:42 | NUR ---
BG 222
[2025-06-04] MEDS ORDERED: METF-446 PO (16:03)
[2025-06-04 17:34] VITALS: BP 130/70; PULSE 93; RESP 17; TEMP 98.3; O2SAT 98
--- NOTE | 2025-06-04 17:36 | NUR ---
BG 144
== END 2025-06-04 18:00 | disposition home or self-care (01) ==
LOC: EDH 12:24
DX: E11.65 Type 2 diabetes mellitus with hyperglycemia (principal); E11.42 Type 2 diabetes mellitus with diabetic polyneuropathy; E86.0 Dehydration; E87.8 Other disorders of electrolyte and fluid balance, not elsewhere classified; Z79.02 Long term (current) use of antithrombotics/antiplatelets; Z79.82 Long term (current) use of aspirin; Z79.84 Long term (current) use of oral hypoglycemic drugs; Z79.899 Other long term (current) drug therapy; Z91.199 Patient's noncompliance with other medical treatment and regimen due to unspecified reason
CPT/HCPCS: 99285; 96374; 70450; 96361; 84484; 80048; 85025; 82948 ×4; 36415; 96376; 93005; J1815; J7030